=== PATIENT | female | born 1965 | race Caucasian/White ===

== ENCOUNTER 2020-01-25 10:24 | Emergency (ER) | payer BC, SELFPAY ==
--- NOTE | ~2020-01-25 | CT_ITS ---
EXAMINATION: CT abdomen pelvis w con EXAM DATE: 01/25/2020 11:25 INDICATION: Abdominal pain, right lower quadrant pain. Nausea 5 hours. States she was COVID 19 +3 wee ks ago. TECHNIQUE: Spiral CT of the abdomen and pelvis was performed following intravenous injection of 100 m L Omnipaque 350. Axial, coronal and sagittal images were reviewed. The dose-length product (DLP) fo r this examination was 635.31 mGy-cm. The exposure was tailored according to patient size (auto mA e xposure control), and iterative reconstruction (ASIR) was used as additional dose reduction technique . There is no prior study for comparison. FINDINGS: The liver, spleen, adrenal glands and pancreas are unremarkable. Gallbladder is unremarkab le. No biliary obstruction. Portal and splenic veins are patent. Kidneys enhance symmetrically. T here is no hydronephrosis. The uterus is retroverted and morphologically normal. The bladder is u nremarkable. There is no retroperitoneal or pelvic lymphadenopathy. The appendix tip has an appendicolith. Appendix is normal in caliber, does not appear obstructed and has no adjacent inflammation. There is mild scattered colonic diverticulosis. There is no adjacent i nflammatory change to suggest diverticulitis. The stomach and small bowel are unremarkable. There is expected amount of colonic stool. No free intraperitoneal gas. The heart is normal in size. The re are no pericardial or pleural effusions. The lung bases are unremarkable. The bones are unremark able. Breast implants. IMPRESSION: 1. No acute intra-abdominal findings. 2. Appendicolith within an otherwise unremarkable appendix. 3. Mild colonic diverticulosis. Reviewed, dictated and finalized at location G.
[2020-01-25 10:28] VITALS: BP 135/101; PULSE 86; RESP 18; TEMP 37.3; O2SAT 95
[2020-01-25] MEDS: SODIUM CHLORIDE 0.9% IV 1,000 ML 999 ML IV CONT (10:40)
[2020-01-25] MEDS: ONDANSETRON INJ 4 MG/2 ML VIAL IV PUSH (10:41)
[2020-01-25] MEDS: FAMOTIDINE 20 MG/2 ML VIAL IV PUSH (10:42)
[2020-01-25 10:45] VITALS: BP 135/81; PULSE 75; RESP 18; O2SAT 100
[2020-01-25 10:48] LABS: Basophils Percent Auto 0.6 % (0.2-1.2); Eosinophils Absolute Auto 0.4 K/mm3 (0-0.3); Hematocrit 40.9 % (37.0-47.0); Immature Granulocyte Absolute 0.02 K/mm3 (0.00-0.031); Immature Granulocyte Percent A 0.3 % (0-0.5); Lymphocytes Absolute Auto 2.13 K/mm3 (0.9-3.2); Mean Corpuscular HGB Conc 34.2 g/dl (32-36); Mean Corpuscular Hemoglobin 33.7 pg (26-34); Mean Corpuscular Volume 98.3 fl (80-100); Mean Platelet Volume 11.7 fl (7.4-10.4); Monocytes Absolute Auto 0.6 K/mm3 (0.1-0.6); Monocytes Percent Auto 9.8 % (2.6-8.5); Neutrophils Absolute Auto 3.3 K/mm3 (1.3-6.7); Neutrophils Percent Auto 50.3 % (45.5-73.1); Platelet Count Result 224 k/mm3 (150-375); Red Blood Count 4.16 M/mm3 (4.2-5.4); Red Cell Distribution Width 12.7 % (11.5-14.5); White Blood Count 6.5 K/mm3 (4.5-10.0)
[2020-01-25 11:04] LABS: Alanine Aminotransferase 17 U/L (4-35); Albumin Level 4.2 g/dL (3.5-5.1); Alkaline Phosphatase 69 U/L (38-126); Anion Gap 10.9 mmol/L (7-16); Aspartate Amino Transferase 20 U/L (14-36); Bilirubin,Total 0.2 mg/dL (0.2-1.3); Blood Urea Nitrogen 12 mg/dL (7-17); Calcium 8.6 mg/dL (8.4-10.2); Carbon Dioxide 27 mmol/L (22-30); Chloride 103 mmol/L (98-107); Estimated CRCL calculation 78 ml/min; Estimated Glomerular Filt Rate > 60; Glucose 99 mg/dL (65-105); Lipase 67 U/L (23-300); Potassium 3.9 mmol/L (3.4-5.0); Sodium 137 mmol/L (137-145)
[2020-01-25 11:16] VITALS: TEMP 37.3
[2020-01-25 11:18] LABS: Add Urine Microscopic? YES; Appearance Urine Clear (Clear); Bacteria Urine Trace /hpf; Bilirubin Urine Negative (Negative); Blood Urine Negative (Negative); Color Urine Straw (Yellow); Glucose Urine UA Negative (Negative); Ketones Urine Negative (Negative); Leukocyte Esterase Ur Negative LEU/UL (Negative); Mucus Urine Rare /lpf; Nitrate Urine Negative (Negative); Protein Urine Negative (Negative); RBC Urine 0-2 /hpf (0-2); Specific Grav Ur 1.009 (1.001-1.035); Squamous Epithelial Cell Urine Many /hpf (Few); Urobilinogen Urine Negative mg/dL (<2.0); WBC Urine 0-3 /hpf
--- NOTE | 2020-01-25 12:14 | ED.ABDPAIN ---
HPI - Abdominal Pain General Chief Complaint: Abdominal Pain <Filemon Sumner PA-C - Last Filed: 01/25/20 12:20> Stated Complaint: abd pain <Filemon Sumner PA-C - Last Filed: 01/25/20 12:20> Time Seen by Provider: 01/25/20 10:27 <ABRAN Mayer Last Filed: 01/25/20 12:20> Source: patient <Filemon Sumner PA-C - Last Filed: 01/25/20 12:20> Mode of arrival: ambulatory <ABRAN Mayer Last Filed: 01/25/20 12:20> Limitations: no limitations <Filemon Sumner PA-C - Last Filed: 01/25/20 12:20> History of Present Illness HPI narrative: Patient is a 54-year-old female who presents to emergency department for evaluation of lower abdominal pain that began this morning patient denies similar occurrence in the past pain does radiate to the back patient has not had anything for her symptoms patient notes nausea but denies emesis patient denies diarrhea, Vaginal symptoms urinary symptoms or URI symptoms. Patient on arrival in the room in no distress. <Filemon Sumner PA-C - Last Filed: 01/25/20 12:20> Related Data Home Medications: Home Medications Medication Instructions Recorded Confirmed estradiol [Divigel] 01/25/20 progesterone micronized mg 01/25/20 <ABRAN Mayer Last Filed: 01/25/20 12:20> Allergies/Adverse Reactions: Allergies Allergy/AdvReac Type Severity Reaction Status Date / Time No Known Allergies Allergy Verified 01/25/20 10:31 <Filemon Sumner PA-C - Last Filed: 01/25/20 12:20> Review of Systems Review of Systems: All systems reviewed & are unremarkable except as noted in HPI and below <Filemon Sumner PA-C - Last Filed: 01/25/20 12:20> PMFSH Past Medical History Medical History: Medical History Anxiety Encounter for screening colonoscopy Screening, lipid <ABRAN Mayer Last Filed: 01/25/20 12:20> Social History Social History: Social History Smoking packs per day: 15 Smoking cigarettes per day: 300.0 Years smoked: 35 Smoking pack-years: 525.00 Smoking status: Current every day smoker Tobacco type: cigarettes Alcohol intake: never Gender identity (if verbalized by the patient): Female <Filemon Sumner PA-C - Last Filed: 01/25/20 12:20> Exam Narrative: Exam Narrative: GENERAL: Well-appearing, well-nourished, and in no acute distress. HEAD: Normocephalic, atraumatic. EYES: PERRLA and EOMI. ENT: Nares clear, no rhinorrhea or epistaxis. Mucous membranes moist. CHEST: Clear to auscultation. No respiratory distress. No wheezes rales or rhonchi HEART: Regular rate and rhythm. No murmur heard. Normal peripheral pulses. ABDOMEN: Soft, tenderness of the lower quadrants of the abdomen, nondistended EXTREMITIES: Normal range of motion. No edema. SKIN: Warm, dry, no rash. NEURO: No focal deficits. Alert and oriented x3. Cranial nerves II through XII grossly intact PSYCH: Normal mood and affect. <Filemon Sumner PA-C - Last Filed: 01/25/20 12:20> Course Course Emergency Course: Patient in the room in no distress aware of case findings treatment plan and diagnosis agreeing to follow-up as directed has follow-up with [facility] in the near future patient also given reasons to return she had improvement with medications no high risk changes in the blood work or imaging patient is aware of the findings patient feeling much better at this time <Filemon Sumner PA-C - Last Filed: 01/25/20 12:20> Vital Signs Vital signs: Vital Signs Temperature 99.1 F 01/25/20 10:28 Pulse Rate 86 01/25/20 10:28 Respiratory Rate 18 01/25/20 10:28 Blood Pressure 135/101 H 01/25/20 10:28 Pulse Oximetry 95 01/25/20 10:28 Temperature 99.1 F 01/25/20 11:16 Pulse Rate 80 01/25/20 12:27 Respiratory Rate 20 01/25/20 12:27 Blood Pres
[2020-01-25 12:27] VITALS: BP 123/70; PULSE 80; RESP 20; O2SAT 95
== END 2020-01-25 12:28 | disposition home or self-care (01) ==
PROVIDERS: Emergency Medicine Emergency Medical Services; Emergency Provider General Practice; PCP Family Medicine
DX: R10.30 Lower abdominal pain, unspecified (principal); F17.210 Nicotine dependence, cigarettes, uncomplicated; K57.90 Diverticulosis of intestine, part unspecified, without perforation or abscess without bleeding; K38.1 Appendicular concretions
CPT/HCPCS: 36415; 74177; 80053; 81001; 81025; 83690; 85025; 96361; 96365; 96375; 99284; J0131; J2405; J7030; Q9967

== ENCOUNTER 2020-03-11 01:49 | Outpatient (CLI) | payer BC, SELFPAY ==
[2020-03-11 19:20] LABS: SARS-CoV-2 RNA PCR Negative
== END 2020-03-11 01:50 | disposition home or self-care (01) ==
LOC: ANHCOVIDDT 01:49
PROVIDERS: PCP Family Medicine; Visit Provider Internal Medicine Gastroenterology
DX: Z01.812 Encounter for preprocedural laboratory examination (principal); Z20.828 Contact with and (suspected) exposure to other viral communicable diseases
CPT/HCPCS: 87635; C9803; U0003

== ENCOUNTER 2020-03-13 01:42 | Day surgery (SDC) | payer BC, SELFPAY ==
[2020-03-13 06:59] VITALS: BP 102/72; PULSE 71; RESP 18; TEMP 36.7; O2SAT 98; BMI 27.0
[2020-03-13] MEDS: LACTATED RINGERS 1,000 ML 150 ML IV CONT (07:07)
--- NOTE | 2020-03-13 07:25 | WPDANESEPPF ---
Anes - Initial Pre Proc Eval Procedure: Operation Date: 03/13/20 08:00 Proposed Procedures p Screening Colonoscopy - Attila Mills MD Date/Time: 03/13/20 07:25 Surgeon: Attila Mills MD Pre Op Diagnosis: Neoplasm Screening Patient Data Age: 54 Gender: F Height: 1.73 m Weight: 80.6 kg Last Vital Signs Temp 36.7 C 03/13/20 06:59 Pulse 71 03/13/20 06:59 Resp 18 03/13/20 06:59 BP 102/72 03/13/20 06:59 Pulse Ox 98 03/13/20 06:59 Allergies Allergy/AdvReac Type Severity Reaction Status Date / Time moxifloxacin Allergy Itching Verified 03/13/20 06:54 Home Medications Medication Instructions Recorded Confirmed Type estradiol [Divigel] 0.5 mg DAILY 01/25/20 03/13/20 History progesterone micronized 100 mg [id number] 01/25/20 03/13/20 History [Prometrium] peg 3350-electrolytes 236 240 ml PO Q10M #4000 ml 01/31/20 Rx gram-22.74 gram-6.74 gram-5.86 gram solution Patient hx anesthesia problems: none Family hx anesthesia problems: none PMFSH Past Medical History Medical History Anxiety Encounter for screening colonoscopy Screening, lipid Family History Family History Father Hypertension Mother Family history of malignant neoplasm of breast in first degree relative Social History Social History Smoking packs per day: 0.5 Smoking cigarettes per day: 10.0 Years smoked: 30 Smoking pack-years: 15.00 Smoking status: Current every day smoker Tobacco type: cigarettes Alcohol intake: former Substance use: never Substance use type: does not use Living arrangements: with family Gender identity (if verbalized by the patient): Female Spiritual care concerns: No Anes - Eval Final PreProcedure Day of Procedure 03/13/20 07:25 Patient weight: overweight Heart: regular rate and rhythm Lungs: clear to auscultation and normal air movement Airway: Mallampati scale class II Neurological: alert and oriented Last oral intake: >/= 8 hours ASA classification: II Emergent: no Anesthetic plan: proceed Anesthesia type and monitoring: general GIVS Informed Consent: The patient's anesthetic plan and its attendant risks and benefits were discussed with the patient/family/POA. Questions were solicited and answers provided to the satisfaction of the patient/family/POA.
--- NOTE | 2020-03-13 07:39 | PM.HPGS ---
History of Present Illness History of Present Illness Consent: Risks, benefits, and alternatives have been discussed and questions answered. Patient agrees to proceed with procedure. Chief complaint: Neoplasm Screening Narrative: Marcy Ruiz is a 54 year old female here for first screening colonoscopy Review of Systems Constitutional: Constitutional: Denies headache(s) and Denies weakness Eyes: Eyes: Denies blurry vision ENT: Reports Normal hearing present, Denies headache(s) and Denies neck pain Cardiovascular: Cardiovascular: Denies chest pain and Denies dyspnea Respiratory: Respiratory: Denies dyspnea Gastrointestinal: Gastrointestinal: Reports no additional gastrointestinal complaints Genitourinary: Genitourinary: Denies dysuria Musculoskeletal: Musculoskeletal: Denies neck pain Integumentary/Breasts: Skin/Breast: Denies dry skin Neurologic: Reports Normal hearing present, Denies headache(s) and Denies weakness Psychiatric: Psychiatric: Denies anxiety Endocrine: Endocrine: Denies change in body appearance Hematologic/Lymphatic: Hematologic/Lymphatic: Denies easy bleeding Allergic/Immunologic: Allergic/Immunologic: Denies urticaria PMFSH Past Medical History Medical History Anxiety Encounter for screening colonoscopy Screening, lipid Family History Family History Father Hypertension Mother Family history of malignant neoplasm of breast in first degree relative Social History Social History Smoking packs per day: 0.5 Smoking cigarettes per day: 10.0 Years smoked: 30 Smoking pack-years: 15.00 Smoking status: Current every day smoker Tobacco type: cigarettes Alcohol intake: former Substance use: never Substance use type: does not use Living arrangements: with family Gender identity (if verbalized by the patient): Female Spiritual care concerns: No Meds Home Medications and Allergies Home Medications Medication Instructions Recorded Confirmed Type estradiol [Divigel] 0.5 mg DAILY 01/25/20 03/13/20 History progesterone micronized 100 mg [id number] 01/25/20 03/13/20 History [Prometrium] peg 3350-electrolytes 236 240 ml PO Q10M #4000 ml 01/31/20 Rx gram-22.74 gram-6.74 gram-5.86 gram solution Allergies Allergy/AdvReac Type Severity Reaction Status Date / Time moxifloxacin Allergy Itching Verified 03/13/20 06:54 Vital Signs Vital Signs - 24 hr 03/13/20 06:59 Temperature 98.1 F Pulse Rate 71 Respiratory Rate 18 Blood Pressure 102/72 Pulse Oximetry 98 Exam Const: General: comfortable and no acute distress HENMT: General nose exam: Normal nares present Eyes: General: appearance normal, both eyes and all related structures Neck: Neck: no JVD Resp: Auscultation: clear to auscultation bilaterally Cardio: Rate: regular rate Rhythm: regular rhythm GI: Inspection: non-distended GI Palp: Yes Soft to palpation Skin: General skin exam: normal color Neuro: General: gait normal Speech: normal speech Extrem: General: normal to inspection Psych: Mental Status: mental status grossly normal Assessment and Plan Assessment and plan (1) Encounter for screening colonoscopy: Code(s): Z12.11 - Encounter for screening for malignant neoplasm of colon Status: Acute Assessment and Plan: will proceed with colonoscopy (2) Anxiety: Code(s): F41.9 - Anxiety disorder, unspecified Status: Acute
[2020-03-13 07:58] VITALS: BP 114/69; PULSE 69; RESP 18; O2SAT 98
[2020-03-13 08:08] VITALS: BP 116/70; PULSE 71; RESP 18; O2SAT 98
[2020-03-13 08:18] VITALS: BP 113/79; PULSE 72; RESP 16; O2SAT 98
== END 2020-03-13 08:45 | disposition home or self-care (01) ==
PROVIDERS: PCP Family Medicine; Visit Provider Internal Medicine Gastroenterology
PROC: 0DJD8ZZ Inspection of Lower Intestinal Tract, Via Natural or Artificial Opening Endoscopic (ICD-10-PCS; CPT 45378; principal; 2020-03-13 08:00)
DX: Z12.11 Encounter for screening for malignant neoplasm of colon (principal); K63.5 Polyp of colon; K64.8 Other hemorrhoids; F17.210 Nicotine dependence, cigarettes, uncomplicated
CPT/HCPCS: 45385; 88305; J2704; J7120

== ENCOUNTER → 2020-12-18 16:02 | Outpatient (CLI) | payer BC, SELFPAY ==
--- NOTE | ~2020-12-18 | US_ITS ---
EXAMINATION: US soft tissue LE EXAM DATE: 12/18/2020 16:17 INDICATION: Nodule on lateral left thigh palpated . TECHNIQUE: Multiple grayscale and Doppler images of the left thigh palpable abnormality were obtained (by a technologist who performed the scan) and subsequently reviewed. There is no prior study for c omparison. FINDINGS: Scanning in the area indicated by patient along left thigh demonstrate normal appearing subcutaneous fat and underlying musculature. No focal mass, hematoma or other fluid collection identified. Please note that unencapsulated lipomas can be difficult to see by any modality. IMPRESSION: Unremarkable left upper thigh ultrasound. Reviewed, dictated and finalized at location B.
== END ==
PROVIDERS: PCP Family Medicine; Visit Provider Nurse Practitioner Family
DX: R22.42 Localized swelling, mass and lump, left lower limb (principal)
CPT/HCPCS: 76882

== ENCOUNTER 2021-07-17 14:34 | Emergency (ER) | payer BC, SELFPAY ==
[2021-07-17] VITALS (8 sets, daily range): BP systolic 100–142; BP diastolic 62–88; PULSE 69–78; RESP 14–18; TEMP 36.6–37.1; O2SAT 96–100
--- NOTE | ~2021-07-17 | CT_ITS ---
EXAMINATION: CTA chest PE protocol EXAM DATE: 07/17/2021 19:20 INDICATION: COVID positive. Elevated d-dimer, fever, shortness of breath. TECHNIQUE: Spiral CTA of the chest (pulmonary arteries) was performed with 100 cc Omnipaque 350 intr avenous contrast injection. Images were acquired during the pulmonary arterial phase. Coronal maxi mum intensity projection 3D-reconstructions were created by the technologist on dedicated workstation . Axial, coronal and sagittal reformatted images were reviewed. The dose-length product (DLP) for t his examination was 246.41 mGy-cm. The exposure was tailored according to patient size (auto mA exp osure control), and iterative reconstruction (ASIR) was used as additional dose reduction technique. There is no prior study for comparison. FINDINGS: Pulmonary arteries are well opacified and without intraluminal filling defects. No thora cic aortic dissection. The lungs are clear. There are no pleural or pericardial effusions. Trach eobronchial tree is patent. There is no mediastinal, hilar or axillary lymphadenopathy. There is no pneumothorax. Heart normal in size. No evidence of coronary arterial calcification. There is s mall sliding gastroesophageal hiatal hernia. There is thoracic spondylosis without osteoblastic or o steolytic lesions identified. IMPRESSION: 1. No pulmonary emboli or other acute cardiopulmonary findings. 2. Small hiatal hernia. Reviewed, dictated and finalized at location G. [employer]
[2021-07-17 18:07] LABS: Basophils Percent Auto 0.7 % (0.2-1.2); Eosinophils Absolute Auto 0.1 K/mm3 (0-0.3); Eosinophils Percent Auto 1.7 % (0-4.4); Hematocrit 38.8 % (37.0-47.0); Hemoglobin 13.1 g/dL (12.0-15.0); Immature Granulocyte Absolute 0.01 K/mm3 (0.00-0.031); Immature Granulocyte Percent A 0.2 % (0-0.5); Lymphocytes Absolute Auto 0.57 K/mm3 (0.9-3.2); Lymphocytes Percent Auto 13.8 % (18.3-44.2); Mean Corpuscular HGB Conc 33.8 g/dl (32-36); Mean Corpuscular Hemoglobin 32.8 pg (26-34); Mean Platelet Volume 11.5 fl (7.4-10.4); Monocytes Absolute Auto 0.7 K/mm3 (0.1-0.6); Monocytes Percent Auto 15.7 % (2.6-8.5); Neutrophils Absolute Auto 2.8 K/mm3 (1.3-6.7); Neutrophils Percent Auto 67.9 % (45.5-73.1); Platelet Count Result 207 k/mm3 (150-375); Red Cell Distribution Width 12.4 % (11.5-14.5); White Blood Count 4.1 K/mm3 (4.5-10.0)
--- NOTE | 2021-07-17 18:09 | ED.GENADULT ---
HPI - General Adult General Chief complaint: Shortness of Breath/Dyspnea Stated complaint: covid positive, sob Time Seen by Provider: 07/17/21 17:29 Source: patient and RN notes reviewed Limitations: no limitations History of Present Illness HPI narrative: 55-year-old female with positive COVID test at home and hysterectomy last Monday presents to the emergency department for evaluation of shortness of breath. Patient states that she did have a hysterectomy at [facility] on Monday. Patient states that she has been continuing to improve since the surgery. Patient states since surgery she has had some upper abdominal pain which she attributes to peritoneal air residual from the surgery. Patient does live with her brother who tested positive for COVID a few days ago. Patient noticed that she had a fever this morning and did take a home test today that was positive. Patient discussed this with her physician and she was recommended to present to the emergency department for evaluation to rule out a pulmonary embolism. Related Data Home Medications Medication Instructions Recorded Confirmed estradiol [Divigel] 0.5 mg DAILY 01/25/20 03/13/20 Allergies Allergy/AdvReac Type Severity Reaction Status Date / Time moxifloxacin Allergy Itching Verified 07/17/21 17:33 Review of Systems Review of Systems: CONSTITUTIONAL: Denies fever, chills, or sweats. EYES: Denies visual changes, redness, or discharge. ENT: Denies rhinorrhea, congestion, sore throat, or otalgia. CARDIOVASCULAR: Denies chest pain, palpitations, or edema. RESPIRATORY: Does have cough and some shortness of breath. GASTROINTESTINAL: Does have abdominal pain since postop but states that the abdominal pain is improving. GENITOURINARY: Denies dysuria or hematuria. SKIN: Denies rash or itching. MUSCULOSKELETAL: Denies back pain, joint pain, or myalgia. NEUROLOGIC: Denies headache, numbness, or weakness. [facility] Past Medical History Medical History (Updated 07/18/21 @ 00:17 by Michael Robins MD) Anxiety BMI 27.0-27.9,adult Encounter for screening colonoscopy Mass of left thigh Palpable mass of soft tissue of thigh Screening, lipid Family History Family History Father Hypertension Mother Family history of malignant neoplasm of breast in first degree relative Social History Social History Smoking packs per day: 0.5 Smoking cigarettes per day: 10.0 Years smoked: 30 Smoking pack-years: 15.00 Smoking status: Current every day smoker Tobacco type: cigarettes Alcohol intake: former Substance use: never Substance use type: does not use Gender identity (if verbalized by the patient): Female Spiritual care concerns: No Exam Narrative: APPEARANCE: Well appearing, no pain, no distress, well-nourished. HEAD: normocephalic, atraumatic. EYES: PERRLA/EOMI, conjunctivae clear. NOSE: Normal no drainage THROAT: Pharynx clear, no exudate. NECK: Supple. No adenopathy, no masses. RESPIRATORY: Airway patent, respirations nonlabored. Clear to auscultation bilaterally, no rales, rhonchi, wheezing. CARDIOVASCULAR: Regular rate and rhythm without murmurs rubs or gallops. ABDOMINAL: Soft, nontender, nondistended, normal bowel sounds MUSCULOSKELETAL: Moves all extremities. Strength/ROM intact, No edema, No calf tenderness. Course Course Emergency Course: Patient is not tachycardic. Patient is not hypoxic. D-dimer was ordered. Patient was updated on the plan for labs and if the D-dimer is elevated we will proceed to the CT scan. Patient CT scan was negative for pulmonary embolism. Patient was updated on the results of her labs and imaging. Clinical impression was COVID Patient was discharged to home Patient was stable at time of discharge Vital Signs Vital signs: Vital Signs Temperature 98.7 F 07/17/21 14:59 Pulse Rate 78 07/17/21
[2021-07-17 18:18] LABS: Alanine Aminotransferase 26 U/L (4-35); Albumin Level 4.3 g/dL (3.5-5.1); Alkaline Phosphatase 65 U/L (38-126); Anion Gap 9 mmol/L (8-16); Aspartate Amino Transferase 26 U/L (14-36); Bilirubin,Total 0.3 mg/dL (0.2-1.3); Blood Urea Nitrogen 11 mg/dL (7-17); Calcium 9.4 mg/dL (8.4-10.2); Carbon Dioxide 25 mmol/L (22-30); Chloride 101 mmol/L (98-107); Estimated CRCL calculation 71 ml/min; Estimated Glomerular Filt Rate > 60; Glucose 104 mg/dL (65-110); Potassium 4.1 mmol/L (3.4-5.0); Sodium 135 mmol/L (137-145)
[2021-07-17 18:22] LABS: D Dimer 1.08 ug/mL (<0.48)
[2021-07-17] MEDS: ACETAMINOPHEN 500 MG TABLET 1000 MG PO (20:05)
== END 2021-07-17 20:25 | disposition home or self-care (01) ==
PROVIDERS: Emergency Provider Emergency Medicine; PCP Family Medicine
DX: U07.1 COVID-19 (principal); R06.00 Dyspnea, unspecified; Z98.890 Other specified postprocedural states; F17.210 Nicotine dependence, cigarettes, uncomplicated; K44.9 Diaphragmatic hernia without obstruction or gangrene
CPT/HCPCS: 36415; 71275; 80053; 85025; 85380; 99284; A9270; Q9967

== ENCOUNTER 2022-02-28 07:51 | Outpatient (CLI) | payer BC, SELFPAY ==
--- NOTE | ~2022-02-28 | MM_ITS ---
EXAMINATION: MM scrn sara implant BI w alda HISTORY: Screening mammogram, family history of breast cancer in her mother. TECHNIQUE: Craniocaudal and mediolateral oblique 3-D tomosynthesis images with implant displacement a nd synthetic 2-D images were generated. Craniocaudal and mediolateral oblique views of the breasts wi thout implant displacement were obtained using full field digital mammography. CAD analysis was submi tted and interpreted. COMPARISON: 10/12/2018, 08/08/2016 BREAST PARENCHYMAL COMPOSITION: There are scattered areas of fibroglandular density. FINDINGS: There is no evidence of suspicious mass, calcification, or architectural distortion to sugg est malignancy in either breast. There has been no suspicious interval change. IMPRESSION: 1. No mammographic evidence of malignancy. 2. Recommend routine screening mammography in one year. BI-RADS Category 1: Negative Reviewed, dictated and finalized at location A.
== END 2022-02-28 07:52 | disposition home or self-care (01) ==
LOC: ANHIMG 07:53
PROVIDERS: PCP Family Medicine; Visit Provider Obstetrics & Gynecology
DX: Z12.31 Encounter for screening mammogram for malignant neoplasm of breast (principal)
CPT/HCPCS: 77063; 77067

== ENCOUNTER 2023-07-21 09:35 | Outpatient (CLI) | payer BC, SELFPAY ==
--- NOTE | 2023-07-21 09:36 | EST_ITS ---
Patient Info Name: Marcy Ruiz Age: 57 years : 1965 Gender: Female Ht: 67 in Wt: 180 lbs BSA: 1.98 m2 HR: 63 bpm BP: 93 / 71 mmHg Exam Date: 07/21/2023 10:15 AM Exam Location: [facility] Patient Status: Outpatient Admit Date: 07/21/2023 Staff Ordering Physician: Libby Whitt Attending Provider: Libby Whitt Exercise Technologist: Thais Cosat RDCS Exercise Physician: Juan Pablo Marin DO Exam Type: CA stress test treadmill Study Info A treadmill exercise stress test was performed. Summary 1. 1. Negative Juan exercise stress test for ischemic ST changes by ECG criteria. 2. 2. Good functional capacity, achieving 10 METs of workload. 3. 3. Appropriate HR response to exercise. 4. 4. Appropriate HR recovery at 1 minute post exercise. 5. 5. No imaging with stress testing. 6. 6. Patient informed of the above results. Protocol: Juan Stress ECG Details Stage: REST Duration (min): 1 min : 0 sec Speed (mph): 0.0 Grade (%): 0 HR (bpm): 62 SBP (mmHg): 93 DBP (mmHg): 71 METS: --- Stage: REST Duration (min): 3 min : 39 sec Speed (mph): 0.0 Grade (%): 0 HR (bpm): 65 SBP (mmHg): 93 DBP (mmHg): 71 METS: --- Stage: STAGE 1 Duration (min): 1 min : 0 sec Speed (mph): 1.7 Grade (%): 10 HR (bpm): 87 SBP (mmHg): 93 DBP (mmHg): 71 METS: --- Stage: STAGE 1 Duration (min): 2 min : 0 sec Speed (mph): 1.7 Grade (%): 10 HR (bpm): 98 SBP (mmHg): 93 DBP (mmHg): 71 METS: --- Stage: STAGE 1 Duration (min): 3 min : 0 sec Speed (mph): 1.7 Grade (%): 10 HR (bpm): 101 SBP (mmHg): 129 DBP (mmHg): 72 METS: --- Stage: STAGE 2 Duration (min): 1 min : 0 sec Speed (mph): 2.5 Grade (%): 12 HR (bpm): 114 SBP (mmHg): 129 DBP (mmHg): 72 METS: --- Stage: STAGE 2 Duration (min): 2 min : 0 sec Speed (mph): 2.5 Grade (%): 12 HR (bpm): 122 SBP (mmHg): 154 DBP (mmHg): 70 METS: --- Stage: STAGE 2 Duration (min): 3 min : 0 sec Speed (mph): 2.5 Grade (%): 12 HR (bpm): 126 SBP (mmHg): 154 DBP (mmHg): 70 METS: --- Stage: STAGE 3 Duration (min): 1 min : 0 sec Speed (mph): 3.4 Grade (%): 14 HR (bpm): 140 SBP (mmHg): 161 DBP (mmHg): 75 METS: --- Stage: STAGE 3 Duration (min): 2 min : 0 sec Speed (mph): 3.4 Grade (%): 14 HR (bpm): 148 SBP (mmHg): 161 DBP (mmHg): 75 METS: --- Stage: STAGE 3 Duration (min): 2 min : 0 sec Speed (mph): 3.4 Grade (%): 14 HR (bpm): 148 SBP (mmHg): 161 DBP (mmHg): 75 METS: --- Stage: RECOVERY Duration (min): 0 min : 59 sec Speed (mph): 0.0 Grade (%): 0 HR (bpm): 123 SBP (mmHg): 171 DBP (mmHg): 76 METS: --- Stage: RECOVERY Duration (min): 1 min : 59 sec Speed (mph): 0.0 Grade (%): 0 HR (bpm): 99 SBP (mmHg): 171 DBP (mmHg): 76 METS: --- Stage: RECOVERY Duration (mi
== END 2023-07-21 09:36 | disposition home or self-care (01) ==
PROVIDERS: PCP Family Medicine; Visit Provider Physician Assistant Medical
DX: R07.89 Other chest pain (principal)
CPT/HCPCS: 93017

== ENCOUNTER 2023-12-21 09:38 | Outpatient (CLI) | payer BC, SELFPAY ==
--- NOTE | ~2023-12-21 | MM_ITS ---
EXAMINATION: MM scrn sara implant BI w alda HISTORY: Screening mammogram TECHNIQUE: Craniocaudal and mediolateral oblique 3-D tomosynthesis images with implant displacement a nd synthetic 2-D images were generated. Craniocaudal and mediolateral oblique views of the breasts wi thout implant displacement were obtained using full field digital mammography. CAD analysis was submi tted and interpreted. COMPARISON: Comparison to multiple prior studies sequentially, with oldest reviewed study dated 04/02. BREAST PARENCHYMAL COMPOSITION: Not dense: There are scattered areas of fibroglandular density. FINDINGS: There is no evidence of suspicious mass, calcification, or architectural distortion to sugg est malignancy in either breast. There has been no suspicious interval change. IMPRESSION: 1. No mammographic evidence of malignancy. 2. Recommend routine screening mammography in one year. BI-RADS Category 1: Negative Reviewed, dictated and finalized at location B.
== END 2023-12-21 09:39 | disposition home or self-care (01) ==
PROVIDERS: PCP Family Medicine; Visit Provider Obstetrics & Gynecology
DX: Z12.31 Encounter for screening mammogram for malignant neoplasm of breast (principal)
CPT/HCPCS: 77063; 77067